=== PATIENT | female | born 2000 | race Caucasian/White ===

== ENCOUNTER 2022-02-17 18:19 | Emergency (ER) | payer OTHER, SELFPAY ==
[2022-02-17 18:30] VITALS: BP 116/41; PULSE 77; RESP 18; TEMP 36.8; O2SAT 100
--- NOTE | 2022-02-17 18:35 | ED.URI ---
HPI - URI/Sore Throat General Chief Complaint: Upper Respiratory Infection Stated Complaint: headache, dizzy, chest pain Time Seen by Provider: 02/17/22 18:35 Source: patient Mode of arrival: ambulatory Limitations: no limitations History of Present Illness HPI Narrative: Hattie is a 21-year-old female patient presenting to clinic today with complaints of headache, dizziness, chest discomfort, and ear pressure. She reports that her symptoms began on Saturday. Has taken some COVID test and they were negative. She denies any known exposure to anybody with COVID, flu, or strep. States the chest pain is a dull ache across the anterior chest. She denies any heavy lifting or any injury to her chest MD elicited complaint: sore throat and nasal congestion Review of Systems Review of Systems: Pertinent positives per HPI. Patient denies any fever, chills, rash, visual changes, cough, shortness of breath, palpitations, nausea, vomiting, diarrhea, constipation, abdominal pain, or any urinary issues. PMFSH Comments At the time of my signature, I reviewed and agree with the nursing past medical, surgical, social, and family history. There is no relevant family history pertinent to the patient complaint. Exam Narrative: General: Well-developed, well nourished, in no apparent distress Head: Normocephalic, atraumatic Eyes: Pupils equally round and reactive to light bilaterally, EOM intact, sclera and conjunctive clear, no discharge, lids normal Ears: TMs intact and clear, ear canals clear, no drainage, grossly hearing normal. Nose: Nares patent, no discharge, no inflammation, no sinus tenderness. Mouth: Oral pharynx without lesions or masses, good dentition, MMM. Neck: Supple, trachea midline, no enlargement of anterior or posterior cervical nodes, no thyroid masses or goiter palpable. Cardio: Regular rate and rhythm, s1 and s2 normal, no murmur appreciated. Resp: Clear to auscultation bilaterally, no rhonchi, rales, wheezing or rubs Course Course Emergency Course: Portions of this record may have been created with voice recognition software. Level of Care: Express Care Visit Vital Signs Vital signs: Vital Signs Temperature 36.8 C 02/17/22 18:30 Pulse Rate 77 02/17/22 18:30 Respiratory Rate 18 02/17/22 18:30 Blood Pressure 116/41 L 02/17/22 18:30 Pulse Oximetry 100 02/17/22 18:30 Temperature 36.8 C 02/17/22 18:30 Pulse Rate 77 02/17/22 18:30 Respiratory Rate 18 02/17/22 18:30 Blood Pressure 116/41 L 02/17/22 18:30 Pulse Oximetry 100 02/17/22 18:30 Vital signs reviewed MDM - URI/Sore Throat MDM Narrative Medical decision making narrative: At the time of visit patient is resting comfortably on the exam table. Influenza testing was performed and was negative in the clinic today. EKG was completed and shows sinus rhythm with sinus arrhythmia. Heart rate is 65 beats per minute. Her blood pressure is 116/41 in the clinic today. I feel that she has eustachian tube dysfunction and viral syndrome. Prescription for prednisone was sent to the pharmacy and supportive measures were discussed with the patient she voiced understanding of discharge instructions and agrees to treatment plan. Differential Diagnosis Differential diagnosis: Likely upper respiratory infection, otitis media, sinusitis, viral infection, bronchitis, influenza, pharyngitis and other (COVID) Lab Data Labs: Influenza A Screen Negative Reference Range: Negative Influenza B Screen Negative Reference Range: Negative ECG Data EKG #1: Attestation: I personally reviewed and interpreted this ECG as follows: ECG completion date: 02/17/22 ECG completion time: 19:01 Prior ECG tracings: not available for review Interpretation: EKG shows sinus rhythm with sinus arrhythmia with he
--- NOTE | 2022-02-17 18:48 | ECG_ITS ---
Measurements Intervals [place] Rate: 65 P: 31 NV: 134 QRS: 50 QRSD: 87 T: 8 QT: 388 QTc: 405 Interpretive Statements SINUS RHYTHM WITH SINUS ARRHYTHMIA NONSPECIFIC T-WAVE ABNORMALITY- ANT/INF LEADS BORDERLINE ECG NO PREVIOUS ECG AVAILABLE FOR COMPARISON Electronically Signed On 02-18-2022 9:09:10 [employer] by Justice Celeste D.O.
== END 2022-02-17 19:05 | disposition home or self-care (01) ==
PROVIDERS: Emergency Provider Nurse Practitioner Family
DX: B34.9 Viral infection, unspecified (principal); J06.9 Acute upper respiratory infection, unspecified; H69.93 Unspecified Eustachian tube disorder, bilateral
CPT/HCPCS: 87804; 93005; 99213; G0463

== ENCOUNTER 2023-01-07 21:01 | Emergency (ER) | payer OTHER, SELFPAY ==
--- NOTE | ~2023-01-07 | CT_ITS ---
EXAMINATION: CT brain wo con DATE: 01/07/2023 21:50 INDICATION: Head injury. TECHNIQUE: Computed tomography (CT) of the head was performed without intravenous contrast. The mA wa s adjusted according to patient size. Iterative reconstruction technique was employed. The dose-lengt h product was 605.33 mGy-cm. COMPARISON: None FINDINGS: There is no intracranial hemorrhage, acute infarction, or abnormal intracranial mass lesion . The ventricles are normal in size. The mastoid air cells are normal. The paranasal sinuses are alfonso r. IMPRESSION: 1. Normal brain. Reviewed, dictated and finalized at location E. IMPRESSION: 1. Normal brain.
[2023-01-07 21:04] VITALS: BP 101/85; PULSE 107; RESP 16; TEMP 36.5; O2SAT 100
--- NOTE | 2023-01-07 21:13 | PC.NURSE ---
Pt refused initiation of syncope protocol in triage. Educated on risks and benefits of receiving testing, pt verbalized understanding, stating I get regular checkups, I dont think that I need all of that .
[2023-01-07 21:27] VITALS: BP 125/73; PULSE 89; RESP 20; O2SAT 100
--- NOTE | 2023-01-07 21:37 | ECG_ITS ---
Measurements Intervals [place] Rate: 84 P: 33 SD: 112 QRS: 48 QRSD: 81 T: 23 QT: 345 QTc: 408 Interpretive Statements SINUS RHYTHM WITH SHORT SD INTERVAL COMPARED TO ECG 02/17/2022 19:01:40 NO SIGNIFICANT CHANGES Electronically Signed On 01-08-2023 14:57:46 CDT by Paola Tang M.D.
--- NOTE | 2023-01-07 21:38 | ED.SYNCOPE ---
HPI - Syncope General Chief Complaint: Syncope <Fay Demetrius Molina III, DO - Last Filed: 01/07/23 22:08> Stated Complaint: syncope, laceration, hit head <Fay Demetrius Molina III, DO - Last Filed: 01/07/23 22:08> Time Seen by Provider: 01/07/23 21:34 <Fay Demetrius Molina III, DO - Last Filed: 01/07/23 22:08> History of Present Illness HPI narrative: Pt was taking a nap and got up and was standing in kitchen and felt lightheaded and had syncopal episode and fell and struck head on wooden cabinet. Pt has mild DALE. Pt denies neck pain or any other injury. Pt has laceration above left eye. <Fay Demetrius Molina III, DO - Last Filed: 01/07/23 22:08> Related Data Allergies/Adverse Reactions: Allergies Allergy/AdvReac Type Severity Reaction Status Date / Time No Known Allergies Allergy Verified 01/07/23 22:24 <Fay Demetrius Molina III, DO - Last Filed: 01/07/23 22:08> Review of Systems Review of Systems: All systems reviewed & are unremarkable except as noted in HPI and below <Fay Edmetrius Molina III, DO - Last Filed: 01/07/23 22:08> Exam Const: General: healthy appearing and no acute distress <Fay Demetrius Molina III, DO - Last Filed: 01/07/23 22:08> Nutritional Appearance: well nourished <Fay Demetrius Molina III, DO - Last Filed: 01/07/23 22:08> Orientation/consciousness: patient oriented x3 <Fay Demetrius Molina III, DO - Last Filed: 01/07/23 22:08> Limitations: no limitations <Fay Demetrius Molina III, DO - Last Filed: 01/07/23 22:08> HENMT: Head: laceration (2.5 cm laceration over left eyebrow ) <Fay Demetrius Molina III, DO - Last Filed: 01/07/23 22:08> Eyes: Conjunctivae: conjunctivae normal <Fay Demetrius Molina III, DO - Last Filed: 01/07/23 22:08> Pupils: Equal, round and reactive pupils present <Fay Demetrius Molina III, DO - Last Filed: 01/07/23 22:08> EOM: EOMs intact bilaterally <Fay Demetrius Molina III, DO - Last Filed: 01/07/23 22:08> Neck: Neck: normal visual inspection <Fay Demetrius Molina III, DO - Last Filed: 01/07/23 22:08> Resp: Effort & Inspection: normal respiratory effort <Fay Demetrius Molina III, DO - Last Filed: 01/07/23 22:08> Auscultation: clear to auscultation bilaterally <Fay Demetrius Molina III, DO - Last Filed: 01/07/23 22:08> Cardio: Rate: regular rate <Fay Demetrius Molina III, DO - Last Filed: 01/07/23 22:08> Rhythm: regular rhythm <Fay Demetrius Molina III, DO - Last Filed: 01/07/23 22:08> GI: GI Palp: Yes Soft to palpation <Fay Demetrius Molina III, DO - Last Filed: 01/07/23 22:08> Skin: Wounds: wounds noted (laceration as above) <Fay Demetrius Molina III, DO - Last Filed: 01/07/23 22:08> Neuro: General: patient oriented x3, moves all extremities, no meningeal signs and no focal motor deficits <Fay Demetrius Molina III, DO - Last Filed: 01/07/23 22:08> Cranial nerves: Yes Nystagmus not present <Fay Demetrius Molina III, DO - Last Filed: 01/07/23 22:08> Speech: normal speech <Fay Demetrius Molina III, DO - Last Filed: 01/07/23 22:08> Extrem: General: normal to inspection and no clubbing, cyanosis or edema <Fay Demetrius Molina III, DO - Last Filed: 01/07/23 22:08> Psych: Mental Status: mental status grossly normal <Fay Demetrius Molina III, DO - Last Filed: 01/07/23 22:08> Affect: normal affect <Fay Demetrius Molina III, DO - Last Filed: 01/07/23 22:08> Attitude: cooperative <Fay Demetrius Molina III, DO - Last Filed: 01/07/23 22:08> Course Vital Signs Vital signs: Vital Signs Temperature 36.5 C 01/07/23 21:04 Pulse Rate 107 H 01/07/23 21:04 Respiratory Rate 16 01/07/23 21:04 Blood Pressure 101/85 01/07/23 21:04 Pulse Oximetry 100 01/07/23 21:04 Oxygen Delivery Room Air 01/07/23 21:04 Temperature 36.5 C 01/07/23 21:04 Pulse Rate 89 01/07/23 21:27 Respiratory Rate 20 01/07/23 21:27 Blood Pressure 125/73 01/07/23 21:27 Pulse Oximetry 100 01/07/23 22:09 Oxygen Delivery Room Air 01/07/23 22:09 <Fay Demetrius Molina III, DO - Last Filed: 01/07
[2023-01-07] MEDS: LIDO 1%/EPINEPHRINE 1:100,000 20 ML VIAL 10 ML INFILTRATE (22:01)
[2023-01-07 22:09] VITALS: O2SAT 100
[2023-01-07 22:30] LABS: Basophils Percent Auto 0.4 % (0.2-1.2); Eosinophils Absolute Auto 0.3 K/mm3 (0-0.3); Eosinophils Percent Auto 2.7 % (0-4.4); Hematocrit 38.3 % (37.0-47.0); Hemoglobin 12.6 g/dL (12.0-15.0); Immature Granulocyte Absolute 0.02 K/mm3 (0.00-0.031); Immature Granulocyte Percent A 0.2 % (0-0.5); Lymphocytes Absolute Auto 2.28 K/mm3 (0.9-3.2); Mean Corpuscular HGB Conc 32.9 g/dl (32-36); Mean Corpuscular Hemoglobin 28.1 pg (26-34); Mean Corpuscular Volume 85.3 fl (80-100); Mean Platelet Volume 9.1 fl (7.4-10.4); Monocytes Absolute Auto 0.7 K/mm3 (0.1-0.6); Monocytes Percent Auto 7.6 % (2.6-8.5); Neutrophils Absolute Auto 6.2 K/mm3 (1.3-6.7); Neutrophils Percent Auto 65.1 % (45.5-73.1); Platelet Count Result 306 k/mm3 (150-375); Red Blood Count 4.49 M/mm3 (4.2-5.4); Red Cell Distribution Width 14.5 % (11.5-14.5); White Blood Count 9.5 K/mm3 (4.5-10.0)
[2023-01-07 22:43] LABS: Alanine Aminotransferase 21 U/L (6-35); Alkaline Phosphatase 52 U/L (38-126); Anion Gap 7 mmol/L (8-16); Aspartate Amino Transferase 28 U/L (14-36); Bilirubin,Total 0.5 mg/dL (0.2-1.3); Blood Urea Nitrogen 8 mg/dL (7-17); Calcium 9.1 mg/dL (8.4-10.2); Carbon Dioxide 25 mmol/L (22-30); Chloride 103 mmol/L (98-107); Estimated CRCL calculation 84 ml/min; Estimated Glomerular Filt Rate > 60; Glucose 95 mg/dL (65-110); Potassium 3.9 mmol/L (3.4-5.0); Sodium 135 mmol/L (137-145)
[2023-01-07 22:54] LABS: Troponin I < 0.012 ng/mL (0.000-0.034)
[2023-01-07 23:53] VITALS: BP 103/62; PULSE 72; RESP 20; O2SAT 99
== END 2023-01-07 23:55 | disposition home or self-care (01) ==
PROVIDERS: Emergency Medicine; Emergency Provider Emergency Medicine
DX: R55 Syncope and collapse (principal); S01.01XA Laceration without foreign body of scalp, initial encounter; Z72.820 Sleep deprivation; W22.09XA Striking against other stationary object, initial encounter
CPT/HCPCS: 12011; 36415; 70450; 80053; 84484; 85025; 93005; 99284